=== PATIENT | female | born 1980 | race Caucasian/White ===

== ENCOUNTER 2022-02-19 12:50 | Emergency (ER) | payer BC ==
--- OUTSIDE RECORDS SUMMARY | 2022-02-19 12:53 | XMS REPORT | Continuity of Care Document ---
:1980 Author Organization [facility] t Address [address] [place] [address] Care Team Providers Name Role Phone Griffin Del Rio MD Primary Care Physician [phone] Konstantin Oakley MD Attending Clinician GRIFFIN DEL RIO Attending Clinician Unavailable Kelvin Almeida Attending Clinician Unavailable Physician, No Primary or Family Admitting Clinician Unavaila ble Payers Payer Name Policy Type Policy Number Effective Date Expiration Date S ource Problems Condition Condition Condition Status Onset Resolution Last Treating Co mments Source Name Details Category Date Date Treatment Clinician Date No known No known Disease Metho di active active st problems problems Hospit a l Allergies, Adverse Reactions, Alerts Allergy Allergy Status Severity Reaction(s) Onset Inactive Treating Comm ents Source Name Type Date Date Clinician No Known DA Active U [facility] [place] No Known DA Active U [facility] Contrast 10-09 [facility] [place] No Known DA Active U [facility] Drug 10-09 [facility] [place] No Known DA Active U [facility] Food 10-09 [facility] [place] No Known DA Active U 2001- [facility] Other 8-26 [facility]: [facility] Social History Social Habit Start Date Stop Date Quantity Comments Source History of tobacco Cigarette Smoker [facility] Alcohol intake 2022-02-09 2022-02-09 Ex-drinker [facility] 00:[facility] 00:[facility]:00 (finding) Hospital Tobacco use and 2020-08-21 2020-08-21 Smokeless tobacco [facility] exposure 00:00:00 00:00:00 non-user Hospital Cigarettes smoked 2020-08-21 2020-08-21 [facility] current (pack per 00:00:00 00:00:00 Hospita l day) - Reported Cigarette 2020-08-21 2020-08-21 [facility] pack-years 00:00:00 00:00:00 Hospital Sex Assigned At [birth year] F [facility] 00:[facility]:00 00:[facility]:00 Hospital Smoking Status Start Date Stop Date Source Smokes tobacco daily 2020-08-21 00:00:00 [facility] Medications Ordered Filled Start Stop Current Ordering Indication Dosage Frequency Signature Comments Components Source Medication Medication Date Date Medication? Clinician (SIG) Name Name sodium,pota 2021-02 Yes Drink 1 Met dionisio saundersmag 04-[address] sulfates 00:00: directed Hospi ta (Suprep 00 for dose 1 l Bowel Prep and 1 Kit) bottle as 17.5-3.13-1 directed .6 gram for dose recon soln 2. hyoscyamine 2021-02- Yes .125mg Q4H Take 1 M ethodi (Levsin) 04-[address] 0.125 mg 00:00: 05:59 (0.125 mg Hos jaycee tablet 00 :00 total) by l mouth every 4 (four) hours as needed for cramping for up to 30 days. 1 sublingual every 4 hours as needed diphenhydrA 2021-02- No Take by thbertha MINE HCL 03-[address] (ZzzQuiL) 11:21: 00:00 Hospita 50 mg/30 mL 46 :00 l liquid Vital Signs Vital Name Observation Time Observation Value Comments Source Systolic blood 2022-02-09 20:31:00 107 mm[Hg] [facility] pressure Diastolic blood 2022-02-09 20:31:00 65 [facility]Hg[facility] pressure Heart rate 2022-02-09 20:31:00 84 /min [facility] Body height 2022-02-09 20:31:00 162.3 cm [facility] Body weight 2022-02-09 20:31:00 63.05 kg [facility] BMI 2022-02-09 20:31:00 23.94 kg/m2 [facility] Body temperature 2022-01-20 16:56:00 36.56 [facility] Oxygen saturation in 2022-01-20 16:56:00 98 /min [facility] Arterial blood by Pulse oximetry Procedures Procedure Date / Time Performing Clinician Source Performed US ABDOMEN COMPLETE 2022-02-04 15:56:54 [facility] CBC HEMOGRAM 2022-01-20 17:22:00 [facility] COMPREHENSIVE METABOLIC 2022-01-20 17:22:00 [facility] PANEL HEMOGLOBIN A1C 2022-01-20 17:22:00 [facility] THYROID STIMULATING 2022-01-20 17:22:00 [facility] HORMONE URINALYSIS, AUTOMATED 2022-01-20 17:22:00 [facility] WITH MICROSCOPY LIPID PANEL 2022-01-20 17:22:00 [facility] HEPATITIS C ANTIBODY 2022-01-20 17:22:00 [facility] VITAMIN D 25 HYDROXY 2022-01-20 17:22:00 [facility] LEVEL Plan of Care Planned Activity Planned Date Details Comments Source Future Scheduled 2022-02-18 COVID-19 VACCINE (#1) [facility] Test 12:46:29 [code = COVID-19 VACCINE (#1)] Future Scheduled 2022-02-18 Pneumococcal Vaccine: [facility] Test 12:46:29 Pediatrics (0 to 5 Years) and At-Risk Patients (6 to 64 Years) (1 - PCV) [code = Pneumococcal Vaccine: Pediatrics (0 to 5 Years) and At-Risk Patients (6 to 64 Years) (1 - PCV)] Future Scheduled 2022-02-18 Screening for [facility] Test 12:46:29 malignant neoplasm of cervix (procedure) [code = 682930522] Future Scheduled 2022-02-18 BREAST CANCER [facility] Test 12:46:29 SCREENING [code = BREAST CANCER SCREENING] Encounters Start End Encounter Admission Attending Care Care Encounter Source Date/Time Date/Time Type Type Clinicians Facility Department ID 2022-02-09 2022-02-09 Office Nicole, 1.2.840.1 [id number] [facility] 14:45:00 15:18:55 Visit Konstantin Zabala 38730.1.1 942 s t 3.430.2.7 Hospit a .3.057362 l .8 2022-02-09 2022-02-09 [facility] [id number] [place] 00:00:00 00:00:00 KONSTANTIN [address] 2022-02-09 2022-02-09 Travel 1.2.840.1 1.2.635.577 [id number] [facility] 00:00:00 00:00:[address] 3.430.2.7 0.2.7.3.698 Ho spita .3.640158 084.8 l .8 2022-02-04 2022-02-04 Outpatient [facility] [id number] [place] 00:00:00 00:00:[address] GRIFFIN [address] 2022-01-25 2022-01-25 Telephone Quang, 1.2.840.1 [id number] [facility] 00:00:00 00:00:[address] 3.430.2.7 Hospit a .3.211417 l .8 2022-01-21 2022-01-21 Telephone Quang, 1.2.840.1 [id number] [facility] 00:00:00 00:00:[address] 3.430.2.7 Hospit a .3.167346 l .8 2022-01-20 2022-01-20 Office Marjorie Del Rio.2.840.1 [id number] [facility] 11:00:00 11:18:41 Visit Griffin [address]44.1.[address] 3.430.2.7 Hospit a .3.828713 l .8 2022-01-20 2022-01-20 [facility] [id number] [place] 00:00:00 00:00:00 GRIFFIN [address] 2022-01-18 2022-01-18 Telephone Marjorie Del Rio.2.840.1 [id number] [facility] 00:00:00 00:00:[address] 3.430.2.7 Hospit a .3.925828 l .8 2021-07-06 2021-07-06 Outpatient Juan Pablo, [facility] [id number] [facility] 12:00:00 12:00:00 [place] [id number] [facility] 2020-08-21 2020-08-21 [facility] [id number] [place] 00:00:00 00:00:00 GRIFFIN [address] Results Test Description Test Time Test Comments Results Result Comments Source Comprehensive metabolic panel 2022-01-21 22:31:00 Test Item Value Reference Range Interpretation Comme nts Glucose (test code = 86 mg/dL 65-139 Non-fa sting reference 2345-7) interval BUN (test code = 3094-0) 18 mg/dL 7-25 Creatinine (test code = 0.81 mg/dL 0.50-0.99 2160-0) eGFR (test code = 8257) See_Comment The eGFR is based on the CKD-EPI 202 1 equation. To ca lculate the new eGFR fr om a previous Creati nine or Cystatin Cresul t, go to https://www.kid loren.org/ professionals/k doqi/gfr %5Fcalculator [Automated mess age] The system which ge nerated this result tra nsmitted reference range : > OR = 60 mL/min/1.73m 2. The reference range was not used to interpr et this result as normal/abnormal . BUN/creatinine ratio NOT APPLICABLE See_Comment [Aut omated message] (test code = 3097-3) The sys tem which generated this result transmitted ref erence range: 6 - 22 ( calc). The reference r vishal was not used to int erpret this result as normal/abnormal . Sodium (test code = 136 mmol/L 168-786 7659-2) Potassium (test code = 5.0 mmol/L 3.5-5.3 2823-3) Chloride (test code = 103 mmol/L 98-110 2075-0) CO2 (test code = 8-9) 27 mmol/L 20-32 Calcium (test code = 10.1 mg/dL 8.6-10.2 70044-0) Protein (test code = 7.4 g/dL 6.1-8.1 2885-2) Albumin, S (test code = 4.7 g/dL 3.6-5.1 1751-7) Globulin, total (test See_Comment [Auto mated message] code = 63546-5) The system w Plyfeh generated this result transmitted ref erence range: 1.9 - 3. 7 g/dL (calc). The ref erence range was not u sed to interpret this result as normal/abnor mal. Albumin/globulin ratio See_Comment [Aut omated message] (test code = 1759-0) The sys tem which generated this result transmitted ref erence range: 1.0 - 2. 5 (calc). The ref erence range was not u sed to interpret this result as normal/abnor mal. Total bilirubin (test 0.4 mg/dL 0.2-1.2 code = 1974-2) Alkaline phosphatase 38 U/L 31-125 (test code = 6768-6) AST (test code = 1920-8) 13 U/L 10-30 ALT (test code = 1742-6) 8 U/L 6-29 JIMMIE (test code = JIMMIE) FASTING:NO FASTING: NO RAC (test code = RAC) Performing Organization Information: Site ID: RGA Name: [facility] Address: [address] [place] [address] [place] [address] Director: Hiro Suh [facility] [id number] 22:31:00 Test Item Value Reference Range Interpretation Comments Cholesterol, total 190 mg/dL See_Comment [Automat ed (test code = 2093-3) message ] The system which generated this result transmitted reference range : <=200. The reference range was not used to interpret this result as normal/abnormal . HDL cholesterol 73 mg/dL See_Comment [Automated (test code = 2085-9) message ] The system which generated this result transmitted reference range : > OR = 50. The reference range was not used to interpret this result as normal/abnormal . Triglycerides (test 90 mg/dL See_Comment [Automa seamus code = 2571-8) message] The system which generated this result transmitted reference range : <=150. The reference range was not used to interpret this result as normal/abnormal . LDL cholesterol mg/dL (calc) Reference ra nge: calculated (test <100 Desira ble code = 90316-9) range <100 m g/dL for primary prevention; <70 mg/dL for patients with C HD or diabetic patients with > or = 2 CHD risk factors. LDL-C is now calculated using the César-Natalia calculation, which is a validated novel method providin g better accuracy than the Friedewald equation in the estimation of LDL-C. César S S et al. ALEC. 2013;310(19): 4831-6397 (http://educati on .[employer] .com/faq/ZSX403 ) Cholesterol/HDL See_Comment [Automated ratio (test code = message] The 9830-1) system which generated this result transmitted reference range : <5.0 (calc). Th e reference range was not used to interpret this result as normal/abnormal . Non-HDL cholesterol See_Comment For issa ents with (test code = diabetes plus 1 81551-6) major ASCVD ris k factor, treatin g to a non-HDL-C goal of <100 mg/dL (LDL-C of <70 mg/dL) is considered a therapeutic option. [Automated message] The system which generated this result transmitted reference range : <130 mg/dL (calc). The reference range was not used to interpret this result as normal/abnormal . JIMMIE (test code = FASTING:NO JIMMIE) FASTING: NO RAC (test code = Performing RAC) Organization Information: Site ID: SEAN Name: [facility] Address: [address] [place] [phone] Director[facility] [id number] 22:31:00 Test Item Value Reference Range Interpretation Comments Hemoglobin A1C See_Comment For the purpo se of (test code = screening for t he 4548-4) presence ofdiab etes: <5.7% Consisten t with the absence of diabetes5.7-6.4 % Consistent with increased risk for diabetes (prediabetes)> or =6.5% Consisten t with diabetes This a ssay result is consi stent with a decrease d riskof diabetes . Currently, no consensus exist s regarding use ofhemoglobin A1 c for diagnosis of di abetes in children. According to [place] Diabetes Associ ation (ADA)guidelines , hemoglobin A1c <7.0% represents optimalcontrol in non- di abetic patients. Differentmetric s may apply to specif ic patient populat ions. Standards of Co dical Care in Diabetes(ADA). [Automated mess age] The system Fraxion generated this result transmitted ref erence range: <5.7 % o f total Hgb. The reference range was not used to int erpret this result as normal/abnormal . JIMMIE (test code = FASTING:NO JIMMIE) FASTING: NO RAC (test code = Performing RAC) Organization Information: Site ID: SEAN Name: [facility] Address: [address] [place] [address] Director: [facility] HospitalThyroid stimulating [id number] 22:31:00 Test Item Value Reference Range Interpretation Comments TSH (test code mIU/L Reference Ra nge > = 3016-3) or = 20 Years 0.40-4.50 Range s First trimester 0.26-2.66 Secon d trimester 0.55-2.73 Third trimester 0.43-2.91 JIMMIE (test code FASTING:NO FASTING: NO = JIMMIE) RAC (test code Performing = RAC) Organization Information: Site ID: SEAN Name: [facility] Address: [address] [place] [address] Director: Hiro Suh [facility] [id number] 22:31:00 Test Item Value Reference Range Interpretation Comments WBC (test code = See_Comment [Automated 6690-2) message] The system which generated this result transmit seamus reference range : 3.8 - 10.8 Thousand/uL. Th e reference range was not used to interpret this result as normal/abnormal . RBC (test code = See_Comment [Automated 789-8) message] The system which generated this result transmit seamus reference range : 3.80 - 5.10 Million/uL. The reference range was not used to interpret this result as normal/abnormal . HGB (test code = 12.8 g/dL 11.7-15.5 718-7) HCT (test code = 38.5 % 35.0-45.0 4544-3) MCV (test code = 90.4 fL 80.0-100.0 787-2) MCH (test code = 30.0 pg 27.0-33.0 785-6) MCHC (test code 33.2 g/dL 32.0-36.0 = 786-4) RDW (test code = 11.9 % 11.0-15.0 788-0) Platelet count See_Comment [Automated (test code = message] The 777-3) system which generated this result transmit seamus reference range : 140 - 400 Thousand/uL. Th e reference range was not used to interpret this result as normal/abnormal . MPV (test code = 9.9 fL 7.5-12.5 776-5) JIMMIE (test code = FASTING:NO FASTING: JIMMIE) NO RAC (test code = Performing RAC) Organization Information: Site ID: RGA Name: [facility] Address: [address] [place] [address] Director: Hiro Suh [facility] Center[facility]inalysis, automated with [id number] 22:31:00 Test Item Value Reference Range Interpretation Comments Color, UA (test code YELLOW YELLOW = 5778-6) Appearance (test CLEAR CLEAR code = 5767-9) Specific gravity, 1.001-1.035 urine (test code = 5811-5) pH, urine (test code < OR = 5.0 5.0-8.0 = 5803-2) Glucose, urine (test NEGATIVE NEGATIVE code = 83731-9) Bilirubin, UA (test NEGATIVE NEGATIVE code = 5770-3) Ketones, UA (test NEGATIVE NEGATIVE code = 2514-8) Occult blood, urine NEGATIVE NEGATIVE (test code = 5794-3) Protein, UA (test NEGATIVE NEGATIVE code = 13663-2) Nitrite, UA (test NEGATIVE NEGATIVE code = 5802-4) Leukocyte esterase, NEGATIVE NEGATIVE UA (test code = 5799-2) WBC, UA (test code = 0-5 See_Comment [Autom ated 5821-4) message] The system which generated this result transmitted reference range : < OR = 5 /HPF. The reference range was not used to interpr et this result as normal/abnormal . RBC, UA (test code = NONE SEEN See_Comment [Autom ated 09258-0) message] The system which generated this result transmitted reference range : < OR = 2 /HPF. The reference range was not used to interpr et this result as normal/abnormal . Squamous epithelial 0-5 See_Comment [Automa seamus cells, UA (test code message ] The = 01816-7) system which generated this result transmitted reference range : < OR = 5 /HPF. The reference range was not used to interpr et this result as normal/abnormal . Bacteria, UA (test FEW NONE SEEN /HPF A code = 5769-5) Hyaline casts, UA NONE SEEN NONE SEEN /LPF (test code = 5796-8) Note: (test code = This urin e was 8251-1) analyzed for th e presence of WBC , RBC, bacteria, casts, and othe r formed elements . Only those elements seen were reported. JIMMIE (test code = FASTING:NO JIMMIE) FASTING: NO RAC (test code = Performing RAC) Organization Information: Site ID: RGA Name: [facility] Address: [address] [place] [phone] Director: Hiro Suh Lab Interpretation Abnormal (test code = 60255-2) [facility] CenterVitamin D 25 hydroxy [id number] 22:31:00 Test Item Value Reference Range Interpretation Comments Vitamin D, 25-hydroxy 14 ng/mL 30-100 L Vitami n D Status (test code = 1988-04) 25-OH V itamin D: Deficiency: <20 ng/mLInsufficie n cy: 20 - 29 ng/mLOptimal: > or = 30 ng/mL For 25-OH Vitamin D testing on patients on D2-supplementat i on and patients for whom quantitation of D2 and D3 fractions is required, the QuestAssureD(TM ) 25-OH VIT D, (D2,D3), LC/MS/MS is recommended: order code 9288 8 (patients >2yrs).See Note 1 Note 1 For additional information, please refer to http://educatio n Shop2/faq/FAQ19 9 (This link is being provided for informational/e d ucational purposes only.) JIMMIE (test code = JIMMIE) FASTING:NO FASTING: NO RAC (test code = RAC) Performing Organization Information: Site ID: A Name: [facility] Address: [address] [place] [address] Director: Hiro Suh Lab Interpretation Abnormal (test code = 82366-6) [facility] C [id number] 22:31:00 Test Item Value Reference Range Interpretation Comments Hepatitis C Ab NON-REACTIVE NON-REACTIVE (test code = 86531-6) Signal/cutoff See_Comment HCV antibody was (test code = non-reactive. 37004-6) There is no laboratory evidence of HCV infection. In m ost cases, no furth er action is required. However,if rece nt HCV exposure is suspected, a te st for HCV RNA(priyanka t code 80711) is suggested. For additional information ple ase refer tohttp://educat ion .Veeva/faq/UNA28z1 (Th is link is shantel carlos provided for informational/e aldair ational purpose s only.) [Automat ed message] The system which generated this result transmit seamus reference range : <=1.00. The reference range was not used to interpret this result as normal/abnormal . JIMMIE (test code = FASTING:NO FASTING: JIMMIE) NO RAC (test code = Performing RAC) Organization Information: Site ID: RGA Name: [facility] Address: [address] [place] [address], [place] [address] Director: Hiro Suh [facility]2022-05-27 12:56:00 Test Item Value Reference Range Interpretation Comments SURGICAL (test code = SR) R UN DATE: 07/10/21 [facility] PAGE 1 RUN TIME: 1257 Specimen Inquiry RUN USER: INTERFACE P ATIENT: SYDNEE ROMERO LOC: [facility] U #: [id number] AGE/SX: 40/F ROOM: RE07/07/21REG DR: Kelvin Almeida MD : 82 BED: DIS: STATUS: DEP SDC TLOC: SPEC #: [id number] RECD: 07/08/21 STATUS: SOUUna REQ #: [id number] TAYLOR: 07/07/[address]: Kelvin Almeida MD ENTERED: 07/08/21 SP TYPE: SURGICAL OTHR DR: Undefined Provider ORDERED: ANATOMIC SPEC/7, SPEC TRACK, 91475/7 COPIES TO: Kelvin Almeida MD [address] [place] [address] Undefined Provider PROCEDURES: 69516 (07/08/21-923) TISSUES: A. ENDOMETRIUM CURETTINGS / BIOPSY B. UTEROSACRAL LIGAMENT - LEFT UTEROSACRAL LIGMENT POSTERIOR CULDESAC C. SOFT TISSUE NOT TUMOR / MASS / LIPOMA / DEBRIDEMENT - LEFT PERIRECTAL ENDOMETRIOSIS NODULE D. UTEROSACRAL LIGAMENT - LEFT UTEROSACRAL LIGMENT PERITONEUM CULDESAC E. PELVIC ADHESIONS - LEFT PELVIC SIDEWALL F. OVARY, RIGHT G. BLADDER, NOS - RIGHT SIDE BLADDER ENDOMETRIOSIS NODULE FINAL DIAGNOSIS A. Endometrial curettings:- Secretory endometrium and minute fragments of benign ectocervical mucosa; no atypicalhyperplasia or malignancy identified B. "Left uterosacral ligament posterior cul de sac endometriotic nodule":- Benign fibroadipose tissue with thermal artifact C. "Left perirectal endometriotic nodule":- Benign fibroadipose tissue with thermal artifact D. "Left uterosacral ligament posterior cul de sac endometriotic nodule"- Benign fibroadipose tissue with focal hypercellularty and thermal artifact E. "Left pelvic sidewall perirectal endometriosis":- Minute fragment of benign fibroadipose tissue with thermal artifact F. "Right ovarian endometriosis":- Minute fragment of benign tissue with bland epithelial lining and hypercellular stroma,could be compatible with endometriosis; clinical correlation recommended CONTINUED ON NEXT PAGE R UN DATE: 07/10/21 [facility] PAGE 2 RUN TIME: 1257 Specimen Inquiry RUN USER: INTERFACE S PEC #: [id number] PATIENT: SYDNEE ROMERO #[id number] (Continued) FINAL DIAGNOSIS (Continued) G. "Right side bladder endometriotic nodule":- Minute fragment of fibromuscular tissue with thermal artifact Comment: Multiple levels were examined for parts B-G. GROSS DESCRIPTION Specimen is received in formalin, in 7 parts each labeled with patient's name, MRN, anddate of .A. Specimen is labeled EMC and consists of a 2.3 x 1.5 x 0.3 cm aggregate of multiplepieces of soft avila-brown tissue and mucoid material. Entirely submitted in 2 cassettesA1-A2.B. Specimen is labeled left uterosacral ligament, posterior cul-de-sac, endometrioticnodule. Specimen consists of a 0.9 x 0.5 x 0.3 cm soft avila-yellow tissue portion. Entirelysubmitted in cassette B1.C. Specimen is labeled left perirectal endometriotic nodule. Specimen consists of a 0.4x 0.3 x 0.2 cm soft to firm yellow tissue portion. Entirely submitted in cassette C1.D. Specimen is labeled left uterosacral ligament posterior cul-de-sac endometrioticnodule. Specimen consists of a 1.1 x 0.6 x 0.3 cm soft avila- fontenot tissue portion. Entirelysubmitted in cassette D1.E. Specimen is labeled left pelvic sidewall perirectal endometriosis. Specimen consistsof is soft avila tissue piece measuring 0.1 x 0.1 cm. Entirely submitted in cassette E1.F. Specimen is labeled right ovarian endometriosis. Specimen consists of a soft avila 0.1x 0.1 cm tissue piece. Entirely submitted in cassette F1.G. Specimen is labeled right side bladder endometriotic nodule and consists of a 0.2 x0.1 cm soft avila tissue piece. Entirely submitted in cassette G1. Technical component performed at [place],[address], [place] [address] Unless gross only, the diagnosis is based upon microscopic examination.Immunohistochemistr y: This test was developed and its performance characteristicsdetermined by this laboratory. It has not been approved nor does it need approval by Liv FDA. Appropriate positive and negative controls are reviewed and judged to beacceptable. This laboratory is certified under the Clinical Laboratory ImprovementAmendments (CLIA-88) as qualified to perform high complexity clinical laboratory testing. CLINICAL INFORMATION ENDOMETRIOSIS Signed _ Marah Faulkner 07/10/21 1256 END OF REPORT AG HEPATITIS B [id number] 16:52:00 Test Item Value Reference Range Interpretation Comments AG HEPATITIS B SURFACE (test code NONREACTIVE NONREACTIVE = HBSAG) AB HEPATITIS C [id number] 16:52:00 Test Item Value Reference Range Interpretation Comments AB HEPATITIS C (test code = NONREACTIVE NONREACTIVE HCVAB) SIGNAL TO CUTOFF (test code = 0.06 <0.80 N CUTOFF) AB HIV 1 16:52:00 Test Item Value Reference Range Interpretation Comments AB HIV 1 2 (test NONREACTIVE NONREACTIVE [facility] code = NCC81JG) 4th Gen HIV Ag/Ab Combo Screen PROTHROMBIN [id number] 14:48:00 Test Item Value Reference Range Interpretation Comments PROTHROMBIN TIME PATIENT (test code 9.9 secs 10.1-12.3 L = PTP) THROMBOPLASTIN TIME [id number] 14:48:00 Test Item Value Reference Range Interpretation Comments THROMBOPLASTIN TIME PARTIAL (test 31.0 secs 22-38 N code = PTT) BASIC METABOLIC [id number] 14:45:00 Test Item Value Reference Range Interpretation Comments SODIUM (test code = NA) 141 mEq/L 135-145 N POTASSIUM (test code = K) 5.1 mEq/L 3.5-5.0 H CHLORIDE (test code = CL) 105 mEq/L 100-115 N CARBON DIOXIDE (test code = CO2) 28 mEq/L 22-31 N ANION GAP (test code = GAP) 13.40 10-20 N GLUCOSE (test code = GLU) 97 mg/dL 65-110 N BLOOD UREA NITROGEN (test code = 16 mg/dL 7-18 N BUN) CREATININE (test code = CREAT) 0.7 mg/dL 0.5-1.0 N CALCIUM (test code = CA) 9.0 mg/dL 8.4-10.2 N GLOMERULAR FILTRATION RATE (test 93 ml/min >60 N code = GFR) LIVER [id number] 14:45:00 Test Item Value Reference Range Interpretation Comments TOTAL PROTEIN (test code = PROT) 7.3 gm/dL 6.3-8.2 N ALBUMIN (test code = ALB) 4.2 gm/dL 3.4-4.8 N BILIRUBIN TOTAL (test code = BILT) 0.3 mg/dL 0.2-1.0 N BILIRUBIN DIRECT (test code = <0.1 mg/dL <0.2 N BILD) SGOT/AST (test code = AST) 12 units/L 15-37 L SGPT/ALT (test code = ALT) 13 units/L 12-78 N ALKALINE PHOSPHATASE TOTAL (test 56 units/L 46-116 N code = ALKP) HCG SERUM [id number] 14:45:00 Test Item Value Reference Range Interpretation Comments HCG SERUM QUAL (test code = HCGQL) NEGATIVE COVID 19 Asymptomatic IH [id number] 14:25:00 Test Item Value Reference Range Interpretation Comments COVID 19 NEGATIVE NEGATIVE This test has been Asymptomatic IH AG authorize d only for the (test code = detection ofpro teins from COVNONPUIAG) SARS-CoV-2, not for any other viruses orpathogens. Ne gative results should be treated as presumptive andconfirmed wi th a molecular assay , if necessary for patientmanageme nt. Negative result s do not rule out COVID- 19 andshould not b e used as the sole basis for treatment orpat ient management deci sions, including infec tion controldecision s. Negative result s should be considered i n thecontext of a patient's recent exposure s, history and thepresence of clinical signs and symptoms consis tent withCOVID-19. T his test has not been FD A cleared or approved; th e test hasbeen authori migule by FDA under an Emerge ncy Use Authorization(E UA) for use by laborato alex certified under the CLIA thatmeet the re quirements to perform mode rate, high or waivedcomple xity tests. This priyanka t is authorized for use at thePoint of Car e (POC), i.e., in patien t care settingsoperati ng under a CLIA Certificat e of Waiver, Certifi patrick ofCompliance, o r Certificate of Accreditation. This test is only authori zed for the duration of thedeclaration that circumstances e xist justifying theauthorizatio n of emergency use o f in vitro diagnostic test sfor detection and/o r diagnosis of CO VID-19 under Jajyyjh42 4(b)(1) of the Act, 21 U.S .C. 360bbb-3(b)(1), unless theauthorizatio n is terminated or r evoked sooner. CBC W/AUTO [id number] 14:21:00 Test Item Value Reference Range Interpretation Comments WHITE BLOOD CELL (test code = WBC) 6.7 K/mm3 6.5-12.3 N RED BLOOD CELL (test code = RBC) 4.25 M/mm3 3.51-4.69 N HEMOGLOBIN (test code = HGB) 12.7 g/dL 10.1-13.8 N HEMATOCRIT (test code = HCT) 39.0 % 32.5-41.8 N MEAN CELL VOLUME (test code = MCV) 91.8 fL 84.6-96.6 N MEAN CELL HGB (test code = MCH) 29.9 pg 27.3-33.9 N MEAN CELL HGB CONCETRATION (test 32.6 gm/dL 32.0-34.2 N code = MCHC) RED CELL DISTRIBUTION WIDTH (test 12.4 % 12.2-16.3 N code = RDW) PLATELET COUNT (test code = PLT) 241 K/mm3 134-363 N MEAN PLATELET VOLUME (test code = 10.4 fL 9.2-12.7 N MPV) NEUTROPHIL % (test code = NT%) 72.6 % 57.9-77.3 N LYMPHOCYTE % (test code = LY%) 20.2 % 14.5-29.7 N MONOCYTE % (test code = MO%) 6.0 % 3.6-10.2 N EOSINOPHIL % (test code = EO%) 0.6 % 0.0-3.0 N BASOPHIL % (test code = BA%) 0.3 % 0.1-0.9 N NEUTROPHIL # (test code = NT#) 4.9 K/mm3 LYMPHOCYTE # (test code = LY#) 1.4 K/mm3 MONOCYTE # (test code = MO#) 0.4 K/mm3 EOSINOPHIL # (test code = EO#) 0.04 K/mm3 BASOPHIL # (test code = BA#) 0.0 K/mm3 RBC MORPHOLOGY REQUIRED (test code NORMAL NORMAL = RBCM) PLATELET MORPHOLOGY REQUIRED (test NORMAL NORMAL code = PLTMR) URINALYSIS [id number] 14:18:00 Test Item Value Reference Range Interpretation Comments UA COLOR (test code = COLU) YELLOW YELLOW UA APPEARANCE (test code = CLEAR CLEAR APPU) UA GLUCOSE DIPSTICK (test code NEGATIVE NEG = DGLUU) UA BILIRUBIN DIPSTICK (test NEGATIVE NEG code = BILU) UA KETONE DIPSTICK (test code NEGATIVE NEG = KETU) UA SPECIFIC GRAVITY (test code 1.017 1.001-1.035 N = SGU) UA BLOOD DIPSTICK (test code = 1+ NEG A MARK) UA PH DIPSTICK (test code = 6.0 5-9 CAROL) UA PROTEIN DIPSTICK (test code NEGATIVE NEG = PROU) UA UROBILINIOGEN DIPSTICK NEGATIVE mg/dL NEG (test code = URO) UA NITRITE DIPSTICK (test code NEG NEG = LIZ) UA LEUKOCYTE ESTERASE DIPSTICK NEG NEG (test code = LEUU) UA WBC (test code = WBCU) 0-2 #/hpf NONE SEEN UA RBC (test code = RBCU) 0-2 #/hpf NONE SEEN UA EPITHELIAL CELLS (test code RARE #/HPF RARE-FEW = EPIU) UA BACTERIA (test code = BACU) RARE /HPF RARE-FEW UA MUCUS (test code = MUCU) RARE NONE SEEN URINE SAMPLE: CLEAN CATCH
[2022-02-19] MEDS ORDERED: IBUPROFEN 400 MG TAB ONE (13:12)
--- NOTE | 2022-02-19 13:34 | RAD REPORT ---
EXAM DESCRIPTION: CT - Head Brain Wo Cont - 02/19/2022 1:23 pm CLINICAL HISTORY: head injury, loc, facial trauma COMPARISON: Facial Bones W/ Mpr dated 02/19/2022 TECHNIQUE: Axial 5 mm thick images of the head were obtained without IV contrast. All CT scans are performed using dose optimization technique as appropriate and may include automated exposure control or mA/KV adjustment according to patient size. FINDINGS: No intracranial hemorrhage, mass, edema or shift of mid-line structures. No acute infarcti on changes seen. No abnormal extra-axial fluid collections. Ventricles are normal. Mastoid air cells are clear. Globes, orbits and facial bones are separately detailed. No fracture of the cranial vault. IMPRESSION: Negative non-contrast CT head examination. Orbits, sinuses and facial bones are separately detailed.
--- NOTE | 2022-02-19 13:38 | RAD REPORT ---
EXAM DESCRIPTION: CT - Facial Bones W/ Mpr - 02/19/2022 1:23 pm CLINICAL HISTORY: Fall, blunt force trauma to the right side of the face COMPARISON: None. TECHNIQUE: Axial 2 millimeter thick images of the facial bones were obtained with sagittal and coron al reconstruction imaging. All CT scans are performed using dose optimization technique as appropriate and may include automated exposure control or mA/KV adjustment according to patient size. FINDINGS: The mandible is intact. Condyles are normally positioned. Mastoid air cells and middle ear s are clear. No skullbase fracture. The right maxillary sinus anterior wall is fractured with no depression of the fracture fragments. Th ere is no air-fluid level present. The patient does have right maxillary sinus mucosal thickening the likely predates the injury. There is contusion or edema in the overlying soft tissues. Right orbital floor is intact. No other facial bone fractures seen. Significant left deviation of the nasal septum is also believed to be chronic presentation. No globe or orbital content injury. Remaining paranasal sinuses are clear. IMPRESSION: Fracture of the right-side maxillary sinus anterior wall without depression. There is pr e-existing mucosal thickening but no air-fluid level in the right maxillary sinus. Contusion or edema changes in the soft tissues overlying the right maxillary sinus. No foreign body.
--- NOTE | 2022-02-19 15:27 | EDPHYS ---
Physician Documentation [facility] Name: Feliberto Ocampo Age: 41 yrs Sex: Female : 1980 Arrival Date: 02/19/2022 Time: 12:54 Bed 10 Private MD: ED Physician Jerdo Bourne HPI: 02/19 19:27 This 41 yrs old Female presents to ER via Ambulatory with complaints of Facial Injury, kb Fall Injury. 19:27 The patient or guardian reports injury, pain, swelling, tenderness. The complaints kb affect the right eye and right cheek. Context of injury: The problem was sustained at home, resulted from a fall, Up the stairs. Onset: The symptoms/episode began/occurred yesterday. Associated signs and symptoms: Loss of consciousness: This patient experience a loss of consciousness, that was brief, Pertinent positives: loss of conciousness, headache, injury. Severity of symptoms: At their worst the symptoms were moderate, in the emergency department the symptoms are unchanged. The patient has not experienced similar symptoms in the past. The patient has not recently seen a physician. Patient reports she fell up the stairs last night hitting her head, causing her to lose consciousness briefly. Patient came in today because the swelling and bruising around her right eye is worse. Denies any visual changes.. OPERATIONS SUPPORT REPRESENTATIVE: 13:05 LMP 01/28/2022 kb3 Historical: - Allergies: 13:05 No Known Allergies; kb3 - Home Meds: 13:05 None [Active]; kb3 - PMHx: 13:05 None; kb3 - PSHx: 13:05 Endometriosis ex lap; Lumpectomy; kb3 - Immunization history:: Adult Immunizations up to date, Client reports having NOT received the Covid vaccine. Last tetanus immunization: up to date. - Social history:: Smoking status: Reported history of juuling and/or vaping. ROS: 19:27 Constitutional: Negative for fever, chills, and weight loss. kb 19:27 Skin: Positive for ecchymosis, swelling, of the right cheek and right eye. 19:27 All other systems are negative. 19:27 Neuro: Positive for loss of consciousness. kb Exam: 19:26 Constitutional: This is a well developed, well nourished patient who is awake, alert, kb and in no acute distress. Cardiovascular: Regular rate and rhythm with a normal S1 and S2. No gallops, murmurs, or rubs. No pulse deficits. Respiratory: Respirations even and unlabored. No increased work of breathing. Talking in full sentences Abdomen/GI: Soft, non-tender. No distention Skin: Warm, dry with normal turgor. Normal color. MS/ Extremity: Pulses equal, no cyanosis. Neurovascular intact. Full, normal range of motion. Neuro: Awake and alert, GCS 15, oriented to person, place, time, and situation. Moves all extremities. Normal gait. Psych: Awake, alert, with orientation to person, place and time. Behavior, mood, and affect are within normal limits. 19:26 Eyes: Periorbital structures: swelling, ecchymosis, Pupils: equal, round, and reactive to light and accomodation, Extraocular movements: No entrapment or pain with movement, Conjunctiva: normal. Vital Signs: 13:03 BP 121 / 70; Pulse 100; Resp 20; Temp 98.1; Pulse Ox 100% ; Weight 61.23 kg; Height 5 kb3 ft. 2 in. (157.48 cm); Pain 4/10; 14:22 BP 109 / 63; Pulse 86; Resp 18; Pulse Ox 100% on R/A; kr3 15:40 BP 97 / 59; Pulse 85; Resp 17; Pulse Ox 100% on R/A; kr3 13:03 Body Mass Index 24.69 (61.23 kg, 157.48 cm) kb3 [place] Coma Score: 15:41 Eye Response: spontaneous(4). Verbal Response: oriented(5). Motor Response: obeys kr3 commands(6). Total: 15. 19:25 Eye Response: spontaneous(4). Verbal Response: oriented(5). Motor Response: obeys kb commands(6). Total: 15. 19:27 Eye Response: spontaneous(4). Verbal Response: oriented(5). Motor Response: obeys kb commands(6). Total: 15. Trauma Score (Adult): 15:41 Eye Response: spontaneous(1); Verbal Response: oriented(1); Motor Response: obeys kr3 commands(2); Systolic BP: > 89 mm Hg(4); Respiratory Rate: 10 to 29 per min(4); Marcio Score: 15; Trauma Score: 12 MDM: 13:09 Patient medically screened. kb 19:25 Differential diagnosis: Contusion of Hematoma on Intracranial bleed- Concussion facial kb fracture. Data reviewed: vital signs, nurses notes. Data interpreted: Pulse oximetry: on room air is 100 %. Interpretation: normal. Counseling: I had a detailed discussion with the patient and/or guardian regarding: the historical points, exam findings, and any diagnostic results supporting the discharge/admit diagnosis, radiology results, the need for outpatient follow up, an oral maxilofacial specialist, to return to the emergency department if symptoms worsen or persist or if there are any questions or concerns that arise at home. ED course: I considered the following discharge prescriptions or medication management in the emergency department: Prescription pain medication considered but patient will take Tylenol and ibuprofen as needed at home for pain; History obtained from: Patient and spouse. . 02/19 13:11 Order name: CT Head Brain wo Cont; Complete Time: 13:35 kb 02/19 13:11 Order name: CT Facial Bones W/O Con; Complete Time: 13:42 kb Administered Medications: 13:11 Drug: Ibuprofen 800 mg Route: PO; kb3 15:45 Follow up: Response: No adverse reaction kr3 Disposition: 19:30 Co-signature as Attending Physician, Jerod Bourne DO I was immediately available on-site ms3 in the Emergency Department for consultation in the care of the patient. Disposition Summary: 02/19/22 15:27 Discharge Ordered Location: Home kb Condition: Stable kb Diagnosis - Right maxillary sinus fracture without depression kb - Unspecified injury of head, initial encounter kb Followup: kb - With: Emergency Department - When: As needed - Reason: Worsening of condition Followup: kb - With: Private Physician - When: 2 - 3 days - Reason: Recheck today's complaints, Continuance of care, Re-evaluation by your physician Discharge Instructions: - Discharge Summary Sheet kb - Head Injury, Adult, [id number] kb Forms: - Medication Reconciliation Form kb - Thank You Letter kb - Antibiotic Education kb - Prescription Opioid Use kb Prescriptions: - Augmentin 875-125 mg Oral Tablet - take 1 tablet by ORAL route every 12 hours for 10 days; 20 tablet; Refills: 0, kb Product Selection Permitted Signatures: Dispatcher [employer] Sussy Avendaño FNP-C FNP-Ckb Sims, Jerod, DO DO ms3 Анна Gandhi, RN RN kb3 Dary Chauhan RN kr3
--- NOTE | 2022-02-19 15:27 | ER ---
Nurse's Notes [facility] Name: Feliberto Ocampo Age: 41 yrs Sex: Female : 1980 Arrival Date: 02/19/2022 Time: 12:54 Bed 10 Private MD: Diagnosis: Right maxillary sinus fracture without depression;Unspecified injury of head, initial encounter Presentation: 02/19 13:03 Chief complaint: Patient states: Feel last night and struck the right side of her face kb3 on a hardwood step at home. Reports right-sided facial pain. Coronavirus screen: Vaccine status: Patient reports being unvaccinated. Client denies travel out of the [place] in the last 14 days. Ebola Screen: Patient negative for fever greater than or equal to 101.5 degrees Fahrenheit, and additional compatible Ebola Virus Disease symptoms Patient denies exposure to infectious person. Patient denies travel to an Ebola-affected area in the 21 days before illness onset. Initial Sepsis Screen: Does the patient meet any 2 criteria? No. Patient's initial sepsis screen is negative. Does the patient have a suspected source of infection? No. Patient's initial sepsis screen is negative. Risk Assessment: Do you want to hurt yourself or someone else? Patient reports no desire to harm self or others. Onset of symptoms was February 18, 2022 at 21:00. 13:03 Method Of Arrival: Ambulatory 3 13:03 Acuity: MARIA T 4 kb3 15:41 Care prior to arrival: None. Mechanism of Injury: Fall from standing position. Trauma kr3 event details: Injury occurred in the [facility], Injury occurred: at home. Triage Assessment: 13:05 General: Appears in no apparent distress. Behavior is calm, cooperative. Pain: kb3 Complains of pain in right eye Pain does not radiate. Pain currently is 4 out of 10 on a pain scale. TITLE LAWYER: 13:05 LMP 01/28/2022 kb3 Historical: - Allergies: 13:05 No Known Allergies; kb3 - Home Meds: 13:05 None [Active]; kb3 - PMHx: 13:05 None; kb3 - PSHx: 13:05 Endometriosis ex lap; Lumpectomy; kb3 - Immunization history:: Adult Immunizations up to date, Client reports having NOT received the Covid vaccine. Last tetanus immunization: up to date. - Social history:: Smoking status: Reported history of juuling and/or vaping. Screenin:40 [facility] ED Fall Risk Assessment (Adult) History of falling in the last 3 months, kr3 including since admission Yes- single mechanical fall (1 pt) Confusion or Disorientation No (0 pts) Intoxicated or Sedated No (0 pts) Impaired Gait No (0 pts) Mobility Assist Device Used No (0 pt) Altered Elimination No (0 pt) Score/Fall Risk Level 0 - 2 = Low Risk. Abuse screen: Denies threats or abuse. Nutritional screening: No deficits noted. Tuberculosis screening: No symptoms or risk factors identified. Primary Survey: 14:25 NO uncontrolled hemorrhage observed. Breathing/Chest: Spontaneous respiratory effort, kr3 equal unlabored respirations, breath sounds clear bilaterally, regular pattern, symmetrical chest rise and fall. Circulation: No external hemorrhage present. Regular and strong central pulse, skin warm/dry/normal color. Disability Client is alert. Exposure/Environment:. Reassessment Alertness and Airway: Awake and alert. The airway is patent. Breathing: Spontaneous respiratory effort, equal unlabored respirations, breath sounds clear bilaterally, regular pattern with symmetrical chest rise and fall. Circulation: No external hemorrhage noted. Regular and strong central pulse, skin warm/dry/normal color. Disability: Alert. Secondary Survey: 15:44 HEENT:. HEENT: Eyes: Other bruising around left eye. Gastrointestinal: No deficits kr3 noted. : No deficits noted. Musculoskeletal: No deficits noted. Assessment: 14:23 General: Appears in no apparent distress. uncomfortable, Behavior is calm, cooperative, kr3 appropriate for age. Pain: Complains of pain in right eye, cheek. 14:23 Neuro: Level of Consciousness is awake, alert, obeys commands, confused, Oriented to kr3 person, place, time, situation. EENT: Eyes bruising of the area around the eye. Cardiovascular: Patient's skin is warm and dry. Respiratory: Airway is patent Respiratory effort is even, unlabored, Respiratory pattern is regular, symmetrical. GI: No signs and/or symptoms were reported involving the gastrointestinal system. : No signs and/or symptoms were reported regarding the genitourinary system. Derm: No signs and/or symptoms reported regarding the dermatologic system. Musculoskeletal: Circulation, motion, and sensation intact. Range of motion: intact in all extremities. Injury Description: Bruise sustained to right eye. 15:40 Reassessment: Patient appears in no apparent distress at this time. Patient and/or kr3 family updated on plan of care and expected duration. Pain level reassessed. Patient is alert, oriented x 3, equal unlabored respirations, skin warm/dry/pink. Vital Signs: 13:03 BP 121 / 70; Pulse 100; Resp 20; Temp 98.1; Pulse Ox 100% ; Weight 61.23 kg; Height 5 kb3 ft. 2 in. (157.48 cm); Pain 4/10; 14:22 BP 109 / 63; Pulse 86; Resp 18; Pulse Ox 100% on R/A; kr3 15:40 BP 97 / 59; Pulse 85; Resp 17; Pulse Ox 100% on R/A; kr3 13:03 Body Mass Index 24.69 (61.23 kg, 157.48 cm) kb3 Marcio Coma Score: 15:41 Eye Response: spontaneous(4). Verbal Response: oriented(5). Motor Response: obeys kr3 commands(6). Total: 15. 19:25 Eye Response: spontaneous(4). Verbal Response: oriented(5). Motor Response: obeys kb commands(6). Total: 15. 19:27 Eye Response: spontaneous(4). Verbal Response: oriented(5). Motor Response: obeys kb commands(6). Total: 15. Trauma Score (Adult): 15:41 Eye Response: spontaneous(1); Verbal Response: oriented(1); Motor Response: obeys kr3 commands(2); Systolic BP: > 89 mm Hg(4); Respiratory Rate: 10 to 29 per min(4); Marcio Score: 15; Trauma Score: 12 ED Course: 12:54 Patient arrived in ED. am2 13:03 Sussy Lock [facility]C [facility] kb 13:03 Jerod Bourne DO is Attending Physician. kb 13:05 Triage completed. kb3 13:05 Arm band placed on right wrist. kb3 13:15 Bed in low position. Call light in reach. Side rails up X 1. kr3 13:24 CT Head Brain wo Cont In Process Unspecified. EDMS 13:24 CT Facial Bones W/O Con In Process Unspecified. EDMS 14:11 Dary Chauhan, RN is Primary Nurse. kr3 15:41 Patient maintains SpO2 saturation greater than 95% on room air. kr3 15:41 No provider procedures requiring assistance completed. Patient did not have IV access kr3 during this emergency room visit. 15:44 Thermoregulation: warm blanket given to patient. kr3 Administered Medications: 13:11 Drug: Ibuprofen 800 mg Route: PO; kb3 15:45 Follow up: Response: No adverse reaction kr3 Medication: 15:44 VIS not applicable for this client. kr3 Intake: 15:41 PO: 0ml; Total: 0ml. kr3 Outcome: 15:27 Discharge ordered by . kb 15:42 Discharged to home ambulatory. kr3 15:42 Condition: stable 15:42 Discharge instructions given to patient, Instructed on discharge instructions, follow up and referral plans. medication usage, Demonstrated understanding of instructions, follow-up care, medications, Prescriptions given X 1. 15:43 Patient's length of stay was not longer than 2 hours. kr3 15:45 Patient left the ED. kr3 Signatures: Dispatcher [employer] EDMD Sussy Lock, AIRCRAFT DISPATCHER-C AIRCRAFT DISPATCHER-Ckb Taryn Hernandez am2 Dary Chauhan, RN RN kr3 Анна Gandhi, RN RN kb3 Corrections: (The following items were deleted from the chart) 15:43 15:42 Patient's length of stay was not longer than 2 hours. kr3 kr3
[2022-02-19 16:31] VITALS: TEMP 98.1; O2SAT 100
[2022-02-19 16:33] VITALS: BP 97/59
== END 2022-02-19 15:45 | disposition home or self-care (01) ==
LOC: ER 12:50
DX: S02.40CA Maxillary fracture, right side, initial encounter for closed fracture (principal)
CPT/HCPCS: 70450; 70486; 76377; 99284